=== PATIENT | male | born 1945 | race Hispanic/Latino ===

== ENCOUNTER 2017-03-28 10:50 | Inpatient (IN) | payer BC, MEDICARE ==
[2017-03-28] VITALS (13 sets, daily range): BP systolic 130–163; BP diastolic 68–99
[~2017-03-28] VITALS: Ht 167.6 cm; Wt 88.2 kg
[~2017-03-28 10:50] MED LIST: CEPHALEXIN500 MG PO; GLIPIZIDE5 MG PO; METOPROLOL TART25 MG PO; TYLENOL WITH C1 EACH PO
[2017-03-28 11:36] LABS: BILIRUBIN,URINE NEGATIVE (NEGATIVE); KETONES,URINE NEGATIVE (NEGATIVE); LEUKOCYTE ESTERASE ,URINE NEGATIVE (NEGATIVE); NITRITE,URINE NEGATIVE (NEGATIVE); PROTEIN,URINE DIPSTICK 3+ (NEGATIVE); URINE UROBILINOGEN 0.2 mg/dL (0.2 - 1)
[2017-03-28 11:38] LABS: CLARITY,URINE SL CLOUDY (CLEAR); COLOR,URINE YELLOW (YELLOW)
[2017-03-28 11:40] LABS: STREPTOCOCCUS GRP A ANTIGEN NEGATIVE (NEGATIVE)
--- NOTE | 2017-03-28 11:40 | Diagnostic Imaging Report ---
Portable chest x-ray CPT code 27392 INDICATION: Shortness of breath COMPARISON: Chest x-ray 09/12/2015 FINDINGS: Frontal view of the chest obtained at 0912 hours. The cardiac silhouette is enlarged and stable in morphology. Right PICC line has been removed. The pulmonary vascular marking are prominent. The interstitial markings are prominent. The lungs demonstrate patchy groundglass airspace opacities in each lung. The costophrenic angles are sharp. There is no pneumothorax. The osseous structures are intact and normal in morphology. IMPRESSION: 1. Pulmonary vascular congestion and mild interstitial edema. 2. Stable cardiomegaly. Signed by: Dr. Dave Bradshaw MD on 03/28/2017 11:37 AM
[2017-03-28 11:41] LABS: BASOPHILS # (AUTO) 0.1 (0.0-0.1); BASOPHILS % 0.8 % (0.0-1.0); EOSINOPHILS # (AUTO) 0.1 (0.0-0.4); EOSINOPHILS % 1.3 % (0.0-6.0); HEMATOCRIT 36.3 % (38.2-49.6); HEMOGLOBIN 12.1 g/dL (14.0-18.0); LYMPHOCYTES # (AUTO) 1.4 (1.0-3.2); LYMPHOCYTES % 15.7 % (18.0-39.1); MEAN CORPUSCULAR HEMOGLOBIN 28.9 pg (28-32); MEAN CORPUSCULAR HGB CONC 33.3 g/dL (31-35); MEAN CORPUSCULAR VOLUME 86.8 fL (81-99); MONOCYTES # (AUTO) 0.8 (0.2-0.8); MONOCYTES % 8.7 % (4.4-11.3); NEUTROPHILS # (AUTO) 6.3 (2.1-6.9); NEUTROPHILS % 73.3 % (38.7-80.0); PLATELET COUNT 202 x10e3/uL (140-360); RED BLOOD COUNT 4.18 x10e6/uL (4.3-5.7); RED CELL DISTRIBUTION WIDTH 13.1 % (11.7-14.4)
[2017-03-28 11:49] LABS: INFLUENZAE A&B ANTIGEN (RAPID) NEGATIVE (NEGATIVE)
[2017-03-28 12:02] LABS: ALBUMIN 2.9 g/dL (3.5-5.0); ALBUMIN/GLOBULIN RATIO 0.7 (0.8-2.0); ANION GAP 13.2 mmol/L (8-16); CALCIUM 8.6 mg/dL (8.4-10.2); CREATININE, SERUM 3.16 mg/dL (0.72-1.25); POTASSIUM 4.2 mmol/L (3.5-5.1)
[2017-03-28 12:05] LABS: BACTERIA,URINE PRESENT /HPF; RBC,URINE 0-5 /HPF (0-5); WBC,URINE (MAN) 0-5 /HPF (0-5)
[2017-03-28 12:06] LABS: EPITHELIAL CELLS,URINE RARE /LPF
[2017-03-28 12:06] LABS: INR 0.98; PARTIAL THROMBOPLASTIN TIME 33.9 seconds (23.8-35.5); PROTHROMBIN TIME 13.5 seconds (11.9-14.5)
[2017-03-28 12:09] LABS: CREATINE KINASE MB 8.5 ng/mL (0.00-5.00)
[2017-03-28 12:13] LABS: TROPONIN I 1.112 ng/mL (0-0.300)
[2017-03-28] MEDS ORDERED: SODIUM CHLORIDE FLUSH 10 ML SYR INJ PRN (12:30)
[2017-03-28] MEDS ORDERED: ONDANSETRON HCL INJ 2 MG/ML VIAL IV PRN (12:30)
[2017-03-28] MEDS ORDERED: MORPHINE SULFATE 2 MG/ML SYR IV PRN ×2 (12:30→19:15)
[2017-03-28] MEDS ORDERED: DEXTROSE 50% SYRINGE 50 ML IV PRN ×2 (13:30→19:45)
[2017-03-28] MEDS ORDERED: FUROSEMIDE INJ 10 MG/ML 4 ML VIAL IV ONE (15:00)
[2017-03-28] MEDS ORDERED: GLIPIZIDE5 MG PO (15:38)
[2017-03-28] MEDS ORDERED: LOPRESSOR25 MG PO (15:49)
[2017-03-28] MEDS ORDERED: COQ-10100 MG PO (15:49)
[2017-03-28] MEDS ORDERED: METOCLOPRAMIDE10 MG PO (15:49)
[2017-03-28] MEDS: INSULIN REGULAR, HUMAN 100 UNIT/1 ML 3ML VIAL SQ SCH ×2 (19:10→21:02)
[2017-03-28] MEDS ORDERED: HYDROCODONE/APAP 5MG-325MG TAB PO PRN (19:15)
[2017-03-28] MEDS ORDERED: NIFEDIPINE CR 30 MG TAB PO SCH (19:15)
[2017-03-28] MEDS ORDERED: ACETAMINOPHEN 325 MG TAB PO PRN (19:15)
[2017-03-28] MEDS ORDERED: ASPIRIN 81 MG CHEW TAB PO ONE (19:15)
[2017-03-28] MEDS ORDERED: MELATONIN 3 MG TAB PO PRN (19:15)
[2017-03-28] MEDS ORDERED: NIFEDIPINE CR 30 MG TAB ONE (19:18)
[2017-03-28] MEDS ORDERED: HEPARIN SOD (PORCINE) 5,000 UNIT/ML VIAL IV ONE (19:45)
[2017-03-28] MEDS ORDERED: HYDRALAZINE HCL 20 MG/ML VIAL IV PRN (19:45)
[2017-03-28] MEDS: HEPARIN 25,000U/0.45% NS 250ML 900 UNIT in SODIUM CHLORIDE 0.9% 250ML 0 ML IV SCH (19:45)
[2017-03-28] MEDS ORDERED: HEPARIN SOD (PORCINE) 1000 UNIT/ML SDV ONE (19:47)
[2017-03-28] MEDS ORDERED: HEPARIN 25,000U/0.45% NS 250ML 250 ML ONE (19:48)
[2017-03-28] MEDS: ATORVASTATIN 20 MG TAB PO SCH (20:59)
[2017-03-28] MEDS: FUROSEMIDE INJ 10 MG/ML 4 ML VIAL IV SCH (20:59)
[2017-03-28] MEDS: METOPROLOL TARTRATE 25 MG TAB PO SCH (20:59)
[2017-03-28 23:31] LABS: CREATINE KINASE MB 8.2 ng/mL (0.00-5.00)
[2017-03-28 23:54] LABS: TROPONIN I 2.049 ng/mL (0-0.300)
[2017-03-29] VITALS (43 sets, daily range): BP systolic 122–175; BP diastolic 57–96
[2017-03-29 03:59] LABS: CREATINE KINASE MB 5.9 ng/mL (0.00-5.00)
[2017-03-29 04:04] LABS: TROPONIN I 3.052 ng/mL (0-0.300)
--- NOTE | 2017-03-29 04:06 | History and Physical ---
CHIEF COMPLAINT: Chest pain. HPI: This is a 71-year-old male with diabetes, hypertension, prior CA in the past with stent placement, osteomyelitis of the foot, seems to be very noncompliant with his medications who comes in with complaints of chest pain for the last 4 to 5 days. Patient reports having chest pressure on the right chest wall, felt more as a pressure, like a knot, but denies any radiation. He had associated nausea, but no vomiting. He denies any diaphoresis, palpitations, abdominal pain or any headache. Patient reports having similar chest pain in the past. He denies any other complaints at this time. Patient was seen and evaluated at bedside in the ER. Currently denies any chest pain at this time. His vital signs were stable. REVIEW OF SYSTEMS: Pertinent positive: Chest pain. Pertinent negative: Denies any palpitation, nausea, vomiting, diarrhea, dysuria, hematuria, frequency, urgency, lightheadedness, dizziness, abdominal pain, headache, shortness of breath or any other complaints. The rest of the 14-point review of systems have been reviewed with the patient and are negative. ALLERGIES: NO KNOWN DRUG ALLERGIES. HOME MEDICATIONS 1. Glipizide 10 mg daily. 2. Reglan 10 mg p.o. t.i.d. 3. Metoprolol tartrate 25 mg b.i.d. PAST MEDICAL HISTORY: Hypertension, diabetes, CAD, osteomyelitis in the past of the foot. He also had coronary artery disease with stent placements in the past. SURGICAL HISTORY: He had amputation of his left great toe due to osteomyelitis. He also had cardiac stents in the past. FAMILY HISTORY: Hypertension and diabetes. SOCIAL HISTORY: He was a former smoker, quit many years ago. No drugs, no alcohol. He is retired. PHYSICAL EXAMINATION VITAL SIGNS: He is afebrile, pulse 96, respiratory rate is 18, and his blood pressure is 166/93, and pulse ox 99% on room air. GENERAL: Not in acute distress. Alert and oriented times 3. Cooperative on exam. HEENT: Head is normocephalic, atraumatic. Eyes: Pupils equal, round, and reactive to light bilaterally. Extraocular movements intact bilaterally. Throat: No evidence of any erythema or exudate in the posterior pharynx. Has poor dentition. NECK: Supple with good range of motion. PULMONARY: Clear to auscultation bilaterally. No wheezing, no rales or rhonchi. No crackles appreciated. CARDIOVASCULAR: Positive S1 and S2. No murmurs, rubs, or gallops appreciated. ABDOMEN: Soft, nondistended, and nontender on palpation. Bowel sounds are present. MUSCULOSKELETAL: Strength is 5/5 throughout. No evidence of any musculoskeletal deficit on exam. SKIN: Intact. Warm to touch. Good capillary refill. PSYCHIATRIC: Normal affect and mood. EXTREMITIES: He has 1+ pedal edema, bilateral lower extremities. Good range of motion throughout. LAB FINDINGS: White count 8.6, hemoglobin 12, hematocrit 36, and platelets 202,000. Coagulations are all normal. Chemistry: Sodium 139, potassium 4.2, chloride 110, bicarb 20, anion gap of 13, BUN 37, and creatinine 3.1. GFR is 20. Glucose 143, calcium 8.6, total bilirubin . LFTs were normal. CK is 226, CK-MB 8.5, and troponin 1.1. BNP 1469. Total protein 7, albumin 2.9. Urinalysis was found to be 2+ blood, 3+ protein, 1+ glucose. Serology: Influenza and strep were negative. Microbiology: Urine culture pending. Throat culture pending. IMAGING STUDIES: Chest x-ray: Pulmonary vascular congestion and mild interstitial edema. ASSESSMENT 1. Non-ST elevated myocardial infarction with elevated troponin, cardiology consulted. Will discuss with cardiology about heparin drip, started on aspirin, statin. I will hold angiotensin-converting enzymes inhibitor due to renal failure. Beta oziel, statin. Get A1c, thyroid-stimulating hormone, and lipid panel. 2. Type 2 diabetes, insulin sliding scale, Accu-Cheks, A1c. 3. Hyperlipidemia, lipid panel. Oral Lipitor. 4. Hypertension. Continue with metoprolol at home. PRN hydralazine. May add low-dose nifedipine. 5. Chronic kidney disease stage 4. Likely due to diabetic neuropathy and hypertension, currently at baseline, monitor. 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 6. Prophylaxis, will likely need to be on heparin drip once we discuss this with cardiology. 7. Fluid, electrolytes, nutrients: Diabetic diet, hold intravenous fluids. DISPOSITION: Inpatient, cardiology consulted otherwise. Job#: [id number] CF
[2017-03-29 06:18] LABS: BASOPHILS # (AUTO) 0.1 (0.0-0.1); BASOPHILS % 0.8 % (0.0-1.0); EOSINOPHILS # (AUTO) 0.3 (0.0-0.4); EOSINOPHILS % 3.6 % (0.0-6.0); HEMATOCRIT 30.2 % (38.2-49.6); HEMOGLOBIN 10.1 g/dL (14.0-18.0); LYMPHOCYTES # (AUTO) 1.3 (1.0-3.2); LYMPHOCYTES % 17.6 % (18.0-39.1); MEAN CORPUSCULAR HEMOGLOBIN 29.3 pg (28-32); MEAN CORPUSCULAR HGB CONC 33.4 g/dL (31-35); MEAN CORPUSCULAR VOLUME 87.5 fL (81-99); MONOCYTES # (AUTO) 0.9 (0.2-0.8); MONOCYTES % 12.1 % (4.4-11.3); NEUTROPHILS % 65.6 % (38.7-80.0); PLATELET COUNT 169 x10e3/uL (140-360); RED BLOOD COUNT 3.45 x10e6/uL (4.3-5.7); RED CELL DISTRIBUTION WIDTH 13.2 % (11.7-14.4)
[2017-03-29 06:30] LABS: CHOL/HDL RATIO 7.2 (3.9-4.7)
[2017-03-29 06:33] LABS: CREATININE, SERUM 3.22 mg/dL (0.72-1.25)
[2017-03-29 06:54] LABS: THYROID STIMULATING HORMONE 1.753 uIU/mL (0.350-4.940)
[2017-03-29] MEDS: INSULIN REGULAR, HUMAN 100 UNIT/1 ML 3ML VIAL SQ SCH ×4 (07:30→21:00)
[2017-03-29] MEDS: METOPROLOL TARTRATE 25 MG TAB PO SCH ×2 (08:20→20:47)
[2017-03-29] MEDS: FUROSEMIDE INJ 10 MG/ML 4 ML VIAL IV SCH ×3 (08:20→18:25)
[2017-03-29] MEDS: ASPIRIN 325 MG TAB PO SCH ×2 (08:20→08:22)
[2017-03-29] MEDS: NIFEDIPINE CR 30 MG TAB PO SCH (08:21)
[2017-03-29] MEDS ORDERED: NITROGLYCERIN 0.4 MG SUBL SL PRN (08:45)
[2017-03-29] MEDS: ASPIRIN 81 MG CHEW TAB PO SCH (10:05)
[2017-03-29 10:46] LABS: CREATINE KINASE MB 4.6 ng/mL (0.00-5.00)
[2017-03-29 11:00] LABS: TROPONIN I 1.72 ng/mL (0-0.300)
--- NOTE | 2017-03-29 11:10 | Consultation ---
DATE OF CONSULTATION: March 28, 2017 CARDIOLOGY CONSULTATION REQUESTING PHYSICIAN: Dr. Smith. REASON FOR CONSULTATION: Elevated troponin. HISTORY OF PRESENT ILLNESS: This is a pleasant 71-year-old male that presented with chest pain. According to the patient, for the last 4 to 5 days he started having left substernal chest pain, on a scale of 8 out of 10 with no radiation, that felt like pressure. He also complained of shortness of breath, that he came into the emergency room for evaluation. He has a history of CAD, PVD and PAD. Last year, August 2015, he underwent a cardiac catheterization and peripheral angiogram also by Dr. Sharp, and he was found to have coronary artery disease and recommended open heart surgery. He denies any palpitation, any dizziness, any diaphoresis or headache. Troponin was positive. EKG with normal sinus rhythm. BNP 1459. PAST MEDICAL HISTORY: Hypertension, diabetes, CKD, PAD, PVD, hyperlipidemia, osteomyelitis, [place] with cardiac stent, peripheral neuropathy, and abdominal hernia. PAST SURGICAL HISTORY: Right toes amputation, cardiac stent. FAMILY HISTORY: Positive for CAD. SOCIAL HISTORY: He quit smoking. Lives at home with the family. MEDICATIONS: See med list. ALLERGIES: HE IS NOT ALLERGIC TO ANY MEDICATION. REVIEW OF SYSTEMS: Negative except those mentioned above. PHYSICAL EXAMINATION VITAL SIGNS: Temperature 99, heart rate 81, blood pressure 158/84, respiration 16, oxygen saturation 97% on room air. GENERAL: He is awake, alert, and oriented x3. HEENT: Mucous membrane moist. NECK: Supple. LUNGS: Bilaterally clear to auscultation. CARDIOVASCULAR: S1/S2 present. ABDOMEN: Soft. NEUROLOGICAL: Intact. EXTREMITIES: With no edema. LABS: Sodium 139, potassium 4.0, chloride 109, CO2 20, BUN 38, creatinine 3.22, glucose 111. White blood cell 7.60, hemoglobin 10.1, hematocrit 30.2, platelet 169. PT 13.5, PTT 63.9, INR 0.98. IMPRESSION 1. Fxe-FI-jzyhhbudm myocardial infarction. 2. Coronary artery disease. 3. Congestive heart failure. 4. Peripheral vascular disease with peripheral artery disease. 5. Chronic kidney disease. 6. Hypertension. 7. Diabetes. ASSESSMENT/PLAN: Will get an echo to reassess the LV and the valve function. He had echo done last year with normal LV function with EF estimated 81%. He also had a cardiac catheterization done 2016 that recommended open heart surgery. Will go ahead and consult a cardiac surgeon. Will continue nitrates, statin and beta oziel. Will go ahead and hold KAREN inhibitor for now due to the renal insufficiency. Will continue heparin drip. Further cardiac workup pending clinical course. Thank you for this consultation. Dictated by: Nishant Quevedo NP Job#: [id number] EV
[2017-03-29] MEDS: SODIUM BICARBONATE 650 MG TAB PO SCH (18:25)
[2017-03-29] MEDS ORDERED: HEPARIN 25,000U/0.45% NS 250ML 250 ML ONE (20:44)
[2017-03-29] MEDS: ATORVASTATIN 20 MG TAB PO SCH (20:46)
[2017-03-29] MEDS: HEPARIN 25,000U/0.45% NS 250ML 900 UNIT in SODIUM CHLORIDE 0.9% 250ML 0 ML IV SCH (20:48)
[2017-03-30] MEDS: FUROSEMIDE INJ 10 MG/ML 4 ML VIAL IV SCH ×2 (00:10→05:45)
[2017-03-30 04:00] VITALS: BP 122/58
[2017-03-30 06:44] LABS: BASOPHILS # (AUTO) 0.1 (0.0-0.1); BASOPHILS % 0.7 % (0.0-1.0); EOSINOPHILS # (AUTO) 0.4 (0.0-0.4); EOSINOPHILS % 4.6 % (0.0-6.0); HEMATOCRIT 34.1 % (38.2-49.6); HEMOGLOBIN 11.2 g/dL (14.0-18.0); LYMPHOCYTES # (AUTO) 1.7 (1.0-3.2); LYMPHOCYTES % 20.2 % (18.0-39.1); MEAN CORPUSCULAR HEMOGLOBIN 28.6 pg (28-32); MEAN CORPUSCULAR HGB CONC 32.8 g/dL (31-35); MEAN CORPUSCULAR VOLUME 87.2 fL (81-99); MONOCYTES % 12.6 % (4.4-11.3); NEUTROPHILS # (AUTO) 5.1 (2.1-6.9); NEUTROPHILS % 61.4 % (38.7-80.0); PLATELET COUNT 175 x10e3/uL (140-360); RED BLOOD COUNT 3.91 x10e6/uL (4.3-5.7); RED CELL DISTRIBUTION WIDTH 13.2 % (11.7-14.4)
[2017-03-30 07:22] LABS: ANION GAP 12.2 mmol/L (8-16); CALCIUM 8.4 mg/dL (8.4-10.2); CREATININE, SERUM 3.72 mg/dL (0.72-1.25); POTASSIUM 4.2 mmol/L (3.5-5.1)
[2017-03-30] MEDS: INSULIN REGULAR, HUMAN 100 UNIT/1 ML 3ML VIAL SQ SCH ×4 (07:30→20:45)
[2017-03-30] MEDS: ASPIRIN 81 MG CHEW TAB PO SCH (09:32)
[2017-03-30] MEDS: NIFEDIPINE CR 30 MG TAB PO SCH (09:33)
[2017-03-30] MEDS: SODIUM BICARBONATE 650 MG TAB PO SCH ×2 (09:33→17:38)
[2017-03-30] MEDS: METOPROLOL TARTRATE 25 MG TAB PO SCH ×2 (09:33→20:59)
[2017-03-30 12:00] VITALS: BP 139/75
[2017-03-30 16:36] VITALS: BP 115/56
[2017-03-30 20:00] VITALS: BP 136/72
[2017-03-30] MEDS: ATORVASTATIN 20 MG TAB PO SCH (20:59)
[2017-03-30 22:41] VITALS: BP 136/72
[2017-03-31] VITALS (8 sets, daily range): BP systolic 132–145; BP diastolic 60–74
[2017-03-31] MEDS: HEPARIN 25,000U/0.45% NS 250ML 900 UNIT in SODIUM CHLORIDE 0.9% 250ML 0 ML IV SCH (02:29)
[2017-03-31 06:42] LABS: BASOPHILS % 0.4 % (0.0-1.0); EOSINOPHILS # (AUTO) 0.3 (0.0-0.4); EOSINOPHILS % 6.9 % (0.0-6.0); HEMATOCRIT 28.3 % (38.2-49.6); HEMOGLOBIN 9.4 g/dL (14.0-18.0); LYMPHOCYTES # (AUTO) 1.3 (1.0-3.2); MEAN CORPUSCULAR HEMOGLOBIN 29.1 pg (28-32); MEAN CORPUSCULAR HGB CONC 33.2 g/dL (31-35); MEAN CORPUSCULAR VOLUME 87.6 fL (81-99); MONOCYTES % 20.8 % (4.4-11.3); NEUTROPHILS # (AUTO) 2.2 (2.1-6.9); NEUTROPHILS % 44.5 % (38.7-80.0); PLATELET COUNT 132 x10e3/uL (140-360); RED BLOOD COUNT 3.23 x10e6/uL (4.3-5.7); RED CELL DISTRIBUTION WIDTH 13.1 % (11.7-14.4)
[2017-03-31] MEDS: INSULIN REGULAR, HUMAN 100 UNIT/1 ML 3ML VIAL SQ SCH ×4 (07:30→22:01)
[2017-03-31 07:33] LABS: ANION GAP 13.4 mmol/L (8-16); CALCIUM 7.8 mg/dL (8.4-10.2); CREATININE, SERUM 3.74 mg/dL (0.72-1.25); POTASSIUM 4.4 mmol/L (3.5-5.1)
--- NOTE | 2017-03-31 08:09 | Progress Note ---
DATE: March 31, 2017 TIME: 7:49 a.m. OVERNIGHT: No chest pain. REVIEW OF SYSTEMS: Denies any dizziness. PHYSICAL EXAMINATION VITAL SIGNS: Reviewed. GENERAL: A tired-appearing man resting in bed. HEENT: Anicteric. CARDIOVASCULAR: Normal S1 and S2. LUNGS: Moderate breath sounds. ABDOMEN: Soft, nontender and nondistended. EXTREMITIES: He has a right transmetatarsal amputation, well-healed. SKIN: Dry. PSYCHIATRIC: Normal affect. NEUROLOGICAL: Alert and oriented times 3. Moving all extremities. LABS: Reviewed. MEDICATIONS: Reviewed. ASSESSMENT: A 71-year-old man with: 1. Ziu-DJ-txgpxkd elevation myocardial infarction. 2. Diabetes mellitus, type 2. 3. Hyperlipidemia. 4. Hypertension. 5. Chronic kidney disease, stage 4/diabetic nephropathy. 6. Normocytic anemia, moderate. 7. Obesity: Body mass index 31.4. 8. Pulmonary edema. PLAN 1. Continue heparin drip. 2. Continue metoprolol, statin, aspirin, calcium channel oziel. 3. Patient is considering left heart catheterization. 4. Continue blood pressure control. 5. Continue oxygen support p.r.n. 6. Left ventricular ejection fraction was 81% about a year ago. 7. Monitor respiratory status. 8. Add Protonix while the patient is on a heparin drip. Job#: [id number] LEA
[2017-03-31] MEDS: NIFEDIPINE CR 30 MG TAB PO SCH (09:34)
[2017-03-31] MEDS: METOPROLOL TARTRATE 25 MG TAB PO SCH ×2 (09:34→22:01)
[2017-03-31] MEDS: ASPIRIN 81 MG CHEW TAB PO SCH (09:34)
[2017-03-31] MEDS: SODIUM BICARBONATE 650 MG TAB PO SCH ×2 (09:34→17:13)
[2017-03-31] MEDS: PANTOPRAZOLE SOD 40 MG TABEC PO SCH (09:34)
[2017-03-31 15:36] LABS: PROTHROMBIN TIME 13.7 seconds (11.9-14.5)
--- NOTE | 2017-03-31 21:36 | Consultation ---
DATE OF CONSULTATION: March 31, 2017 REASON FOR CONSULTATION: Coronary artery disease. REQUESTED BY: Dr. Johnson HISTORY: This is a 71-year-old man with diabetes, hypertension, and a history of myocardial infarction, with stent placements, who has been fairly noncompliant with his medical regimen. He was admitted via the emergency room with chest pressure of the right upper chest wall. He denied any radiation to the arms or jaw. There was no classic substernal chest pain. He had associated nausea, but no vomiting. There was no diaphoresis, palpitations or headache. He has had similar chest pains in the past. He had a cardiac catheterization and peripheral arteriogram by Dr. Sharp last year. Reportedly, he was told of coronary artery disease and coronary artery bypass grafting was recommended. However, he did not want surgery and did well until now. There is no clear history of PND or orthopnea. No palpitation. No dizziness. Troponins were positive in the emergency room. EKG was normal. BNP was 1459. PAST MEDICAL HISTORY: Positive for hypertension, diabetes, chronic renal insufficiency with a creatinine running approximately 3.0-3.5. Positive for peripheral arterial disease with transmetatarsal amputation on the right. Positive for hyperlipidemia, osteomyelitis, coronary artery stenting, and an abdominal hernia, which was repaired. Positive for diabetes. PAST SURGICAL HISTORY: Possible right toe amputation and coronary artery stenting. FAMILY HISTORY: Positive for coronary artery disease. Negative for stroke. SOCIAL HISTORY: A previously heavy smoker, but quit several years ago. No IV drugs or alcohol. He lives at home with his family. MEDICATIONS: See MAR. ALLERGIES: NONE. REVIEW OF SYSTEMS GENERAL: Positive for fatigue and malaise. NEUROLOGIC: Negative for focal weakness of extremities or dysarthria. HEENT: Negative for decreased vision or decreased hearing. CARDIAC: Positive for chest pain as above. Negative for palpitations. PULMONARY: Negative for shortness of breath or wheezing. GI: No constipation or diarrhea. : Negative for hematuria or dysuria. ENDOCRINE: Negative for polyuria or polydipsia. VASCULAR: Positive for claudication and positive as above. SKIN: Negative for rashes or nonhealing ulcers. HEMATOLOGIC: Negative for clotting or bleeding. INFECTIOUS: Negative for fevers or sweating. PSYCHIATRIC: Negative for depression or anxiety. PHYSICAL EXAMINATION GENERAL: Well-developed, well-nourished man sitting up in bed, appearing his stated age. His and daughter are at the bedside. VITAL SIGNS: Blood pressure 140/70, pulse 80 and regular, respirations 16 and unlabored. NECK: Supple and nontender. No JVD. CARDIAC: Regular rate and rhythm. Normal S1 and S2. No S3, S4, rub or murmur. LUNGS: Clear to auscultation and percussion bilaterally. ABDOMEN: Globoid and benign. Good bowel sounds. No hepatosplenomegaly. There is an upper midline well-healed scar. BACK: No CVA tenderness. No muscular spasm. EXTREMITIES: No cyanosis, clubbing or edema. There is a well-healed right transmetatarsal amputation. VASCULAR: Carotids 2+/2+ bilaterally. No carotid bruits. Brachials 2+/2+ bilaterally. Ulnars and radials 1+/2+ bilaterally. Femorals 2+/2+ bilaterally. I could not palpate any pulses distal to either femoral artery and either lower extremities. SKIN: No rashes or nonhealing ulcers. MUSCULOSKELETAL: Full range of motion at all joints. No joint swelling. NEUROLOGIC: Cranial nerves II through XII intact. Sensation intact to light touch and pinprick bilaterally. Strength 5/5 all extremities. LYMPHATIC: Negative for cervical, clavicular, femoral adenopathy. LABORATORIES: White count 12.96, hemoglobin 9.4, hematocrit 28.3, platelet count 132,000. INR 1.0. PTT 75.4 (on IV heparin). Sodium 142, potassium 4.4, BUN 44, creatinine 3.74. IMPRESSION: Non-ST elevation myocardial infarction. Cardiac catheterization was, apparently, carried out about a year ago or more and coronary artery bypass grafting was recommended. Patient refused at that time. He has now ruled in for another myocardial infarction. Repeat cardiac catheterization with surgical intervention if warranted, is most likely appropriate. I will discuss these issues with his other physicians. Thank you very much for asking me to see this nice man. Job#: [id number] CQ
[2017-03-31] MEDS: ATORVASTATIN 20 MG TAB PO SCH (22:01)
[2017-04-01] VITALS (8 sets, daily range): BP systolic 135–158; BP diastolic 62–81
[2017-04-01] MEDS: INSULIN REGULAR, HUMAN 100 UNIT/1 ML 3ML VIAL SQ SCH ×4 (07:30→21:28)
[2017-04-01 08:11] LABS: ALBUMIN 2.6 g/dL (3.5-5.0); ALBUMIN/GLOBULIN RATIO 0.7 (0.8-2.0); CALCIUM 8.1 mg/dL (8.4-10.2); CREATININE, SERUM 3.68 mg/dL (0.72-1.25); PHOSPHORUS 3.5 MG/DL (2.3-4.7)
[2017-04-01] MEDS: NIFEDIPINE CR 30 MG TAB PO SCH (09:45)
[2017-04-01] MEDS: SODIUM BICARBONATE 650 MG TAB PO SCH ×2 (09:45→17:32)
[2017-04-01] MEDS: ASPIRIN 81 MG CHEW TAB PO SCH (09:45)
[2017-04-01] MEDS: PANTOPRAZOLE SOD 40 MG TABEC PO SCH (09:45)
[2017-04-01] MEDS: METOPROLOL TARTRATE 25 MG TAB PO SCH ×2 (09:45→20:47)
--- NOTE | 2017-04-01 13:09 | Progress Note ---
DATE: April 01, 2017 TIME: 8:30 a.m. OVERNIGHT: Patient refuses catheterization. REVIEW OF SYSTEMS: Denies any dizziness. PHYSICAL EXAMINATION VITAL SIGNS: Reviewed. GENERAL: A tired-appearing man resting in bed. HEENT: Anicteric. CARDIOVASCULAR: Normal S1 and S2. LUNGS: Moderate breath sounds. ABDOMEN: Soft, nontender and nondistended. EXTREMITIES: He has a right transmetatarsal amputation well healed. SKIN: Dry. PSYCHIATRIC: Normal affect. NEUROLOGICAL: Alert and oriented times 3. Moving all extremities. LABS: Reviewed. MEDICATIONS: Reviewed. ASSESSMENT: A 71-year-old man. 1. Inr-YI-yoswnif elevation myocardial infarction. 2. Diabetes mellitus, type 2. 3. Hyperlipidemia. 4. Hypertension. 5. Chronic kidney disease, stage 4/diabetic nephropathy. 6. Normocytic anemia, moderate. 7. Obesity. BMI 31.4. 8. Pulmonary edema. PLAN 1. Patient refuses heart catheterization. Therefore, continue medical management only. 2. Some bleeding with heparin drip. Heparin has been discontinued. 3. Continue beta oziel, statin, aspirin, calcium channel oziel and other medications. 4. Left ventricular ejection fraction 81% a year ago. 5. Blood pressure is controlled. 6. Hemoglobin A1c is 6.4, LDL 175, and triglycerides 154. Will increase Lipitor to 80 mg daily. 7. Discharge planning. Job#: [id number]
--- NOTE | 2017-04-01 13:16 | Diagnostic Imaging Report ---
PROCEDURE:US RETROPERITONEAL ( KIDNEY ). COMPARISON:CTA abdomen and pelvis and runoff 08/29/2015. INDICATIONS:ARF TECHNIQUE: Metcalf-scale and color sonographic images of the bilateral kidneys and bladder where obtained in transverse and longitudinal planes. FINDINGS: RIGHT KIDNEY: 10.0 x 5.5 x 4.5 cm, cortex 1.9 cm Cysts: None Solid masses: None Stones: None Hydronephrosis: None Echogenicity: Normal. LEFT KIDNEY: 10.9 x 5.9 x 5.2 cm, cortex 1.7 cm Cysts: None Solid masses: None Stones: None Hydronephrosis: None Echogenicity: Normal. Bladder: The prevoid volume 156 mL. No post void volume. Bilateral ureteral jets are not visualized. 1.0 x 2.7 x 3.2 cm (4.4 mL) soft tissue in the lumen of the bladder. Prostate: Not seen. CONCLUSION: 1. Normal kidneys. 2. 1.0 x 2.7 x 3.2 cm soft tissue lesion in the base of the bladder, which may represent the median lobe hypertrophy of the prostate versus an intraluminal mass. Recommend CT urogram or direct cystoscopy. Dictated by: Je Todd M.D. on 04/01/2017 at 13:24 Electronically approved by: Je Todd M.D. on 04/01/2017 at 13:24
[2017-04-01] MEDS: FUROSEMIDE INJ 10 MG/ML 4 ML VIAL IV SCH ×2 (15:30→21:41)
[2017-04-01] MEDS ORDERED: ATORVASTATIN 40 MG TAB PO SCH (21:00)
[2017-04-02] VITALS: BP 135/65
[2017-04-02 04:00] VITALS: BP 145/68
[2017-04-02 06:05] LABS: ALBUMIN 2.5 g/dL (3.5-5.0); ALBUMIN/GLOBULIN RATIO 0.7 (0.8-2.0); ANION GAP 13.8 mmol/L (8-16); CALCIUM 7.8 mg/dL (8.4-10.2); CREATININE, SERUM 3.73 mg/dL (0.72-1.25); POTASSIUM 3.8 mmol/L (3.5-5.1)
[2017-04-02] MEDS: FUROSEMIDE INJ 10 MG/ML 4 ML VIAL IV SCH ×2 (06:17→14:49)
[2017-04-02] MEDS ORDERED: PROTONIX40 MG/ML PO (06:28)
[2017-04-02] MEDS ORDERED: NIFEDIPINE ER30 M1 PO (06:28)
[2017-04-02] MEDS ORDERED: ASPIRIN CHEW81 MG PO (06:28)
[2017-04-02] MEDS ORDERED: Atorvastatin PO (06:28)
[2017-04-02] MEDS ORDERED: SODIUM BICARBO650 MG PO (06:28)
[2017-04-02] MEDS ORDERED: FUROSEMIDE40 MG PO (06:30)
--- NOTE | 2017-04-02 07:21 | Discharge Summary ---
PRINCIPAL DIAGNOSES: 1. Non-ST elevation myocardial infarction. 2. Questionable bladder lesion. 3. Diabetes mellitus type 2. 4. Hyperlipidemia. 5. Obesity, body mass index 31.4. 6. Chronic kidney disease, stage 4. 7. Diabetic nephropathy. Hemoglobin A1c 6.4, LDL 175, triglycerides 154. SECONDARY DIAGNOSIS: Diabetes mellitus type 2. CHIEF COMPLAINT: Chest discomfort. HISTORY OF PRESENT ILLNESS: A 71-year-old man found to have non-ST elevation [place]. Please refer to the H and P for further details. HOSPITAL COURSE: Patient has non-ST elevation [place], diabetes mellitus type 2, hemoglobin A1c 6.4, LDL 175. Recommended for heart catheterization, patient refused. He refused any intervention other than medical. Ultrasound showed questionable bladder lesion. He will follow up with urology outpatient for further management. He is currently symptom free. He has been placed on statin, beta oziel, aspirin, and Lasix. He is doing better. His last ejection fraction was 81% about a year ago. His ejection fraction on this occasion was 60%. Patient is currently appropriate for discharge. Will follow up. DISCHARGE MEDICATIONS: Per electronic medical record. FOLLOWUP: 1. Follow up with primary care doctor in 1 week. 2. Follow up with urology in 1 week, Dr. Wallace. 3. Follow up with cardiology in 2 weeks. 4. Follow up with nephrology in 1 week. CONDITION ON DISCHARGE: Stable and improving. DISCHARGE LOCATION: Home. AMARI DIAZ MD Job#: [id number]
[2017-04-02] MEDS: INSULIN REGULAR, HUMAN 100 UNIT/1 ML 3ML VIAL SQ SCH ×3 (07:30→16:30)
[2017-04-02 07:42] VITALS: BP 167/77
[2017-04-02] MEDS: NIFEDIPINE CR 30 MG TAB PO SCH (08:44)
[2017-04-02] MEDS: PANTOPRAZOLE SOD 40 MG TABEC PO SCH (08:44)
[2017-04-02] MEDS: ASPIRIN 81 MG CHEW TAB PO SCH (08:44)
[2017-04-02] MEDS: SODIUM BICARBONATE 650 MG TAB PO SCH (08:44)
[2017-04-02] MEDS: METOPROLOL TARTRATE 25 MG TAB PO SCH (08:44)
[2017-04-02 11:55] VITALS: BP 165/75
[2017-04-02 16:19] VITALS: BP 138/68
[2017-04-02 17:35] LABS: CREATININE,URINE RANDOM 36.61 mg/dL (63-166)
== END 2017-04-02 18:04 | disposition home or self-care (01) | DRG 280 ==
LOC: ER 10:50 → ERHOLD 13:00 → ICU 21:09 → MED/SURG 03-29 22:18
PROVIDERS: ADMIT Internal Medicine; ATTEND Internal Medicine
DX: I21.4 Non-ST elevation (NSTEMI) myocardial infarction (principal); I50.33 Acute on chronic diastolic (congestive) heart failure; J81.1 Chronic pulmonary edema; E87.2 Acidosis; N18.4 Chronic kidney disease, stage 4 (severe); I13.0 Hypertensive heart and chronic kidney disease with heart failure and stage 1 through stage 4 chronic kidney disease, or unspecified chronic kidney disease; E86.0 Dehydration; E66.9 Obesity, unspecified; Z68.31 Body mass index [BMI] 31.0-31.9, adult; I25.10 Atherosclerotic heart disease of native coronary artery without angina pectoris; E11.51 Type 2 diabetes mellitus with diabetic peripheral angiopathy without gangrene; Z79.4 Long term (current) use of insulin; Z53.29 Procedure and treatment not carried out because of patient's decision for other reasons; Z91.14 Patient's other noncompliance with medication regimen; Z89.431 Acquired absence of right foot; Z87.891 Personal history of nicotine dependence; I25.2 Old myocardial infarction; Z95.5 Presence of coronary angioplasty implant and graft
CPT/HCPCS: 36415; 71010; 76770; 80048; 80053; 80061; 81001; 81050; 82550; 82553; 82575; 82948; 83036; 83518; 83880; 84100; 84156; 84443; 84484; 85025; 85610; 85730; 87070; 87086; 87400; 93005; 93306; 96372; 99284; J1644; J1940; J7050

== ENCOUNTER 2017-04-28 20:35 | Inpatient (IN) | payer MEDICARE ==
[~2017-04-28] VITALS: Ht 167.6 cm; Wt 67.6 kg
[~2017-04-28 20:35] MED LIST changes: +ASPIRIN CHEW81 MG PO; +Atorvastatin PO; +COQ-10100 MG PO; +FUROSEMIDE40 MG PO; +LOPRESSOR25 MG PO; +METOCLOPRAMIDE10 MG PO; +NIFEDIPINE ER30 M1 PO; +PROTONIX40 MG/ML PO; +SODIUM BICARBO650 MG PO
[2017-04-28] MEDS ORDERED: NITROGLYCERIN 2% OINT 1 GM PKT TOP ONE (21:15)
[2017-04-28 21:27] LABS: BASOPHILS # (AUTO) 0.1 (0.0-0.1); BASOPHILS % 0.6 % (0.0-1.0); EOSINOPHILS # (AUTO) 0.2 (0.0-0.4); EOSINOPHILS % 1.8 % (0.0-6.0); HEMATOCRIT 33.9 % (38.2-49.6); LYMPHOCYTES # (AUTO) 1.4 (1.0-3.2); LYMPHOCYTES % 15.2 % (18.0-39.1); MEAN CORPUSCULAR HEMOGLOBIN 28.9 pg (28-32); MEAN CORPUSCULAR HGB CONC 32.4 g/dL (31-35); MEAN CORPUSCULAR VOLUME 89.2 fL (81-99); MONOCYTES # (AUTO) 0.7 (0.2-0.8); MONOCYTES % 8.1 % (4.4-11.3); NEUTROPHILS # (AUTO) 6.6 (2.1-6.9); PLATELET COUNT 200 x10e3/uL (140-360); RED CELL DISTRIBUTION WIDTH 12.9 % (11.7-14.4)
[2017-04-28 21:28] LABS: BILIRUBIN,URINE NEGATIVE (NEGATIVE); KETONES,URINE TRACE (NEGATIVE); LEUKOCYTE ESTERASE ,URINE NEGATIVE (NEGATIVE); NITRITE,URINE NEGATIVE (NEGATIVE); PROTEIN,URINE DIPSTICK 3+ (NEGATIVE); URINE UROBILINOGEN 0.2 mg/dL (0.2 - 1)
[2017-04-28 21:29] LABS: CLARITY,URINE SL CLOUDY (CLEAR); COLOR,URINE YELLOW (YELLOW)
[2017-04-28 21:31] LABS: INR 0.95; PROTHROMBIN TIME 13.1 seconds (11.9-14.5)
[2017-04-28 21:32] LABS: PARTIAL THROMBOPLASTIN TIME 33.4 seconds (23.8-35.5)
[2017-04-28 21:41] LABS: ALBUMIN 3.2 g/dL (3.5-5.0); ALBUMIN/GLOBULIN RATIO 0.9 (0.8-2.0); ANION GAP 15.8 mmol/L (8-16); CALCIUM 8.2 mg/dL (8.4-10.2); CREATININE, SERUM 3.51 mg/dL (0.72-1.25); POTASSIUM 3.8 mmol/L (3.5-5.1)
[2017-04-28 21:48] LABS: CREATINE KINASE MB 3.8 ng/mL (0.00-5.00)
[2017-04-28] MEDS ORDERED: FUROSEMIDE INJ 10 MG/ML 4 ML VIAL IV ONE (22:00)
--- NOTE | 2017-04-28 22:16 | Diagnostic Imaging Report ---
EXAM: CHEST SINGLE (NOT PORTABLE), AP 1 view DATE: 04/28/2017 9:07 PM Time stamp on exam: 2142 hours INDICATION: Shortness of breath COMPARISON: AP view the chest March 28, 2017 FINDINGS: LINES/TUBES: None LUNGS: Interval decrease in interstitial edema. Persistent bibasilar atelectasis and bronchial thickening. PLEURA: Small bilateral pleural effusions. HEART AND MEDIASTINUM: The heart is at the upper limits of normal in size. BONES AND SOFT TISSUES: No acute findings. IMPRESSION: Decreased interstitial edema since prior exam. Bronchial thickening, bibasilar atelectasis and new small bilateral pleural effusions. Signed by: Dr. Shasta Breaux M.D. on 04/28/2017 10:12 PM
[2017-04-29] MEDS ORDERED: ASPIRIN 81 MG CHEW TAB PO ONE (01:30)
[2017-04-29] MEDS ORDERED: HEPARIN SOD (PORCINE) 5,000 UNIT/ML VIAL IV ONE (01:30)
[2017-04-29] MEDS ORDERED: METOPROLOL TARTRATE 25 MG TAB PO STA (01:32)
[2017-04-29] MEDS ORDERED: HEPARIN 25,000U/0.45% NS 250ML 250 ML ONE (01:52)
[2017-04-29] MEDS: HEPARIN 25,000U/0.45% NS 250ML 25,000 UNIT in SODIUM CHLORIDE 0.9% 250ML 0 ML IV SCH (02:00)
[2017-04-29] MEDS ORDERED: DEXTROSE 50% SYRINGE 50 ML IV PRN (02:45)
--- NOTE | 2017-04-29 08:14 | History and Physical ---
PRIMARY CARE PHYSICIAN: Dr. Jose D Christian CHIEF COMPLAINT: Reduced urine output and leg swelling. HISTORY OF PRESENT ILLNESS: A 71-year-old man with a history of chronic kidney disease, stage 4, recently discharged earlier this month after a jnz-AR-qatzkcemp [place]. Now, the patient developing worsening leg edema and reduced urine output. Therefore, he came to the hospital. Here, his kidney function appears to be somewhat at baseline at stage 4. He was started on diuretics with urine output improving. Denies any chest pain, fever, chills, or sweats. PAST MEDICAL HISTORY: Oon-ZZ-efannvcbg [place] in March 2017, questionable bladder lesion, diabetes mellitus, type 2, hyperlipidemia, obesity, BMI 31.4, chronic kidney disease, stage 4/diabetic nephropathy, diabetes mellitus, type 2, hemoglobin A1c 6.4, LDL 175 in March of 2017, osteomyelitis of the foot, coronary artery disease with stent placement in the remote past, hypertension, hyperlipidemia. PAST SURGICAL HISTORY: Amputation of the left great toe due to osteomyelitis, coronary stents in the remote past. ALLERGIES: PER ELECTRONIC MEDICAL RECORD. FAMILY HISTORY: Hypertension and diabetes mellitus. SOCIAL HISTORY: Patient is . He quit smoking many years ago. No alcohol or illicits. He is retired. MEDICATIONS: Per electronic medical record. REVIEW OF SYSTEMS: Denies any dizziness or chest pain. PHYSICAL EXAMINATION VITAL SIGNS: Have been reviewed. GENERAL: A tired-appearing man resting in bed. HEENT: Anicteric. Pupils respond to light. No oral lesions. CARDIOVASCULAR: Normal S1 and S2. No murmurs are audible. LUNGS: Moderate breath sounds slightly reduced at the base. ABDOMEN: Soft, nontender and nondistended. EXTREMITIES: He has 1+ leg edema bilaterally. He has a right transmetatarsal amputation well-healed. SKIN: Dry. PSYCHIATRIC: Normal affect. LABS: Reviewed. MEDICATIONS: Reviewed. ASSESSMENT AND PLAN: A 71-year-old man with: 1. Bilateral pleural effusion/peripheral edema: Patient has mild fluid overload and started on diuretics and urinating. Will follow I's and O's. Will use thromboembolic-deterrent hose as well. 2. Chronic kidney disease, stage 4/diabetic nephropathy: Will consult his belt builder helper, Dr. Paige. 3. Diabetes mellitus, type 2: Last hemoglobin A1c was 6.4, LDL 175 and triglycerides 154 early in March 2017. Continue medication regimen and ADA diet. 4. Obesity: Caloric restriction needed. 5. Coronary artery disease with history of fyr-YR-hvjhqkvov myocardial infarction earlier this month and also coronary stents in the past: Will control his blood pressure and cholesterol medications. 6. Normocytic anemia, mild: Will follow. 7. Elevated BNP: He has had an echocardiogram earlier this month, which showed normal left ventricular ejection fraction. 8. Physical deconditioning: Physical therapy consultation. 9. Elevated troponin: This is minimal secondary to his chronic kidney disease and is much lower than the last reading on the last admission to the hospital where he had a oqi-ZG-xsirdqw elevation myocardial infarction. Currently, the patient does not have an git-SU-jgzylbo elevation myocardial infarction. Continue home medication regimen. 10. Prophylaxis: Will use thromboembolic-deterrent hose and sequential compression devices. 11. Disposition: Monitor I's and O's. Consult his belt builder helper. Job#: [id number] LEA
[2017-04-29] MEDS ORDERED: METOPROLOL TARTRATE 25 MG TAB PO SCH ×2 (09:00)
[2017-04-29] MEDS ORDERED: FUROSEMIDE INJ 10 MG/ML 4 ML VIAL IV SCH ×2 (09:00→17:00)
[2017-04-29] MEDS ORDERED: ASPIRIN 325 MG TAB EC PO SCH (09:00)
[2017-04-29 09:03] LABS: CREATINE KINASE MB 3.4 ng/mL (0.00-5.00)
[2017-04-29] MEDS: GLIPIZIDE 5 MG TAB PO SCH (09:08)
[2017-04-29] MEDS: INSULIN REGULAR, HUMAN 100 UNIT/1 ML 3ML VIAL SQ SCH ×4 (09:08→21:00)
[2017-04-29] MEDS: ASPIRIN 81 MG CHEW TAB PO SCH (09:09)
[2017-04-29] MEDS: METOPROLOL TARTRATE 25 MG TAB PO SCH ×2 (09:10→21:00)
[2017-04-29] MEDS: NIFEDIPINE CR 30 MG TAB PO SCH (09:10)
[2017-04-29] MEDS: PANTOPRAZOLE SOD 40 MG TABEC PO SCH (09:28)
[2017-04-29] MEDS: METOCLOPRAMIDE HCL 10 MG TAB PO SCH ×3 (09:28→21:01)
[2017-04-29] MEDS: SODIUM BICARBONATE 650 MG TAB PO SCH ×2 (09:28→20:53)
--- NOTE | 2017-04-29 10:32 | Consultation ---
DATE OF CONSULTATION: April 29, 2017 CARDIOLOGY CONSULTATION REASON FOR CONSULTATION: CHF and non-STEMI. CONSULTING PHYSICIAN: Dr. Adams HPI: This is a pleasant 71-year-old male that presented with shortness of breath. According to the patient, for the last several days, 4-5 days he has been having dyspnea that worsened with exacerbation. He is unable to lay flat, increased cough, fever, and sweating that he presented to the emergency room for evaluation. He also complained of bilateral lower extremity edema. He was recently admitted and discharged home in March for the same reason of CKD, CHF, and non-STEMI. He has a history of CAD. Recommended cardiac catheterization in 2016, which he declined. He denies any chest pain, any palpitations, any dizziness, or headache. Troponin was borderline. EKG with non-ST abnormalities. BNP 1552.1. PAST MEDICAL HISTORY: Hypertension, diabetes, CKD, PAD, PVD, hyperlipidemia, osteomyelitis, OK, peripheral neuropathy, abdominal hernia, and CHF. PAST SURGICAL HISTORY: Hernia repair, cardiac stent, right toe amputation. FAMILY HISTORY: Positive for CAD. SOCIAL HISTORY: He quit smoking. Lives at home with the . MEDICATIONS: See med list. ALLERGIES: HE IS NOT ALLERGIC TO ANY MEDICATION. REVIEW OF SYSTEMS: Negative except those mentioned above. Is positive for orthopnea and bilateral lower extremity edema. PHYSICAL EXAMINATION VITAL SIGNS: Temperature 97, heart rate 87, blood pressure 146/85, respirations 18, oxygen saturation 99% on 2 L nasal cannula. GENERAL: He is alert, awake and oriented times 3. HEENT: Mucous membrane moist. NECK: Supple. LUNGS: Bilateral with decreased breath sounds. CARDIOVASCULAR: S1 and S2 present. ABDOMEN: Soft. NEUROLOGICAL: Intact. EXTREMITIES: With positive edema. LABS: Sodium 140, potassium 3.8, chloride 105, CO2 23, BUN 51, creatinine 3.51, glucose 158. White blood cell 8.89, hemoglobin 11, hematocrit 33.9, and platelets 200,000. PTT 10.1, PTT 77.3 and INR 0.95. IMPRESSION 1. Dkk-SK-[id number] elevation myocardial infarction. 2. Diastolic congestive heart failure. 3. Chronic kidney disease. 4. Diabetes. 5. Hypertension. 6. Peripheral arterial disease. 7. History of peripheral vascular neuropathy. ASSESSMENT AND PLAN: Will go ahead and put him on 1.5 L fluid restriction. Low salt diet. Possible cardiac catheterization if cleared by renal. Will go ahead and continue the heparin drip. Will continue diuretics and beta oziel. He had an EF in March that showed an EF of 60% to 65% with normal left ventricular size. Further cardiac workup pending clinical course. Thank you for this consultation. DICTATED BY RICH PIERRE NP Job#: [id number] RI
--- NOTE | 2017-04-29 15:54 | Consultation ---
DATE OF CONSULTATION: April 29, 2017 HISTORY OF PRESENT ILLNESS: A 71-year-old gentleman with underlying history of chronic kidney disease stage 4 who presented with worsening edema of the lower extremities refractory to medications at home. He had recently seen his data center consultant who had increased the diuretic dose, but that, according to him, made him sick and nauseated. He is currently sitting up in no apparent distress saturating 96% on 3 liters nasal cannula. Labs show white count 8.8. Hemoglobin 11. Sodium 140. Potassium 3.8. Bicarbonate 23. Creatinine 3.5. Calcium 8.2. CK of 221. BNP 1552. SOCIAL HISTORY: Patient does not smoke or drink. FAMILY HISTORY: Significant for hypertension and diabetes. Workup here also included chest x-ray shows bronchial thickening, interstitial edema and pulmonary edema. ALLERGIES: NO APPARENT DRUG ALLERGIES. CURRENT MEDICATIONS: On sodium bicarbonate 39 mg p.o. b.i.d., insulin, pantoprazole, nifedipine 30 mg daily, metoprolol 25 mg p.o. b.i.d., metoclopramide p.r.n., glipizide 10 mg daily. Heparin subcutaneous injection, Lasix 40 mg IV twice a day, which I am going to stop. He is on aspirin 81 mg to chew, atorvastatin 80 mg at bedtime. For dose schedule please see MAR. PAST MEDICAL HISTORY: Significant for prior hernia repair, coronary artery disease, prior MRI, peripheral vascular disease, history of osteomyelitis, type 2 diabetes, peripheral neuropathy, chronic kidney disease, stage 4, prior PCI and coronary stent, history of diastolic heart failure. PHYSICAL EXAMINATION: GENERAL: Awake, alert, sitting up in no apparent distress. VITALS: Blood pressure 131/84. Pulse rate 79, afebrile, and respiratory rate 17. HEAD AND NECK: Cornea clear. Oral mucosa dry. Neck veins flat. LUNGS: Bibasilar rales. HEART: S1 and S2 audible. ABDOMEN: Otherwise soft and nontender. FLANKS: Full. LOWER EXTREMITY EXAMINATION: Shows 2+ edema. IMPRESSION AND PLAN: Congestive heart failure, fluid overload, strict intake and output. Will diurese with Lasix 40 mg IV q.6 h. Obtain clinic records. Has [id number]-rhnqgpr kidney failure, may require dialysis. Will obtain 24-hour urine for creatinine clearance and proteins at some point in time. Underlying hypertension, diastolic heart failure, overall for multiple comorbid condition. Please see orders. Job#: [id number] GH
[2017-04-29 17:04] LABS: CREATINE KINASE MB 3.2 ng/mL (0.00-5.00)
[2017-04-29] MEDS: ATORVASTATIN 40 MG TAB PO SCH (20:53)
[2017-04-29] MEDS: FUROSEMIDE INJ 10 MG/ML 4 ML VIAL IV SCH (21:00)
[2017-04-29] MEDS ORDERED: ATORVASTATIN 80 MG PO SCH (21:00)
[2017-04-30] VITALS (8 sets, daily range): BP systolic 122–139; BP diastolic 62–80
[2017-04-30] MEDS: FUROSEMIDE INJ 10 MG/ML 4 ML VIAL IV SCH ×4 (00:05→18:42)
[2017-04-30] MEDS: HEPARIN 25,000U/0.45% NS 250ML 25,000 UNIT in SODIUM CHLORIDE 0.9% 250ML 0 ML IV SCH ×2 (01:58→04:06)
[2017-04-30] MEDS ORDERED: HEPARIN 25,000U/0.45% NS 250ML 250 ML ONE (04:03)
[2017-04-30] MEDS ORDERED: ACETAMINOPHEN 325 MG TAB PO PRN (06:00)
[2017-04-30 07:29] LABS: BASOPHILS # (AUTO) 0.1 (0.0-0.1); BASOPHILS % 0.9 % (0.0-1.0); EOSINOPHILS # (AUTO) 0.5 (0.0-0.4); EOSINOPHILS % 6.7 % (0.0-6.0); HEMATOCRIT 29.3 % (38.2-49.6); HEMOGLOBIN 9.4 g/dL (14.0-18.0); LYMPHOCYTES # (AUTO) 1.6 (1.0-3.2); LYMPHOCYTES % 21.6 % (18.0-39.1); MEAN CORPUSCULAR HEMOGLOBIN 28.4 pg (28-32); MEAN CORPUSCULAR HGB CONC 32.1 g/dL (31-35); MEAN CORPUSCULAR VOLUME 88.5 fL (81-99); MONOCYTES # (AUTO) 0.8 (0.2-0.8); MONOCYTES % 10.2 % (4.4-11.3); NEUTROPHILS # (AUTO) 4.6 (2.1-6.9); NEUTROPHILS % 60.2 % (38.7-80.0); PLATELET COUNT 156 x10e3/uL (140-360); RED BLOOD COUNT 3.31 x10e6/uL (4.3-5.7)
[2017-04-30] MEDS: INSULIN REGULAR, HUMAN 100 UNIT/1 ML 3ML VIAL SQ SCH ×4 (07:30→21:45)
--- NOTE | 2017-04-30 07:50 | Progress Note ---
DATE: April 30, 2017 TIME: 7 a.m. OVERNIGHT: Chest pain. REVIEW OF SYSTEMS: Denies any dizziness. PHYSICAL EXAMINATION VITAL SIGNS: Reviewed. GENERAL: A tired-appearing man resting in bed. HEENT: Anicteric. CARDIOVASCULAR: Normal S1 and S2. LUNGS: Moderate breath sounds. ABDOMEN: Soft, nontender and nondistended. EXTREMITIES: He has 1+ leg edema bilaterally. 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 SKIN: Dry. PSYCHIATRIC: Normal affect. LABS: Reviewed. MEDICATIONS: Reviewed. ASSESSMENT: A 71-year-old man with: 1. Bilateral pleural effusion/peripheral edema. 2. Diabetes mellitus, type 2: Hemoglobin A1c 6.4, LDL 175 and triglycerides 154 in March 2017. 3. Obesity. 4. Coronary artery disease with history of [id number] elevation myocardial infarction in March: There is no acute coronary syndrome at this time. 5. Normocytic anemia. 6. Physical deconditioning. 7. Elevated troponin without acute myocardial infarction at this time. PLAN 1. Discontinue heparin. 2. Continue diuretics. Defer to nephrology for adjustment. 3. Continue bicarb. 4. Continue oral antiglycemic agents. Glucose controlled. 5. Plan to discharge when fluid status has improved. Job#: [id number] LEA
[2017-04-30 07:55] LABS: ALBUMIN 2.8 g/dL (3.5-5.0); ALBUMIN/GLOBULIN RATIO 0.9 (0.8-2.0); ANION GAP 15.6 mmol/L (8-16); CREATININE, SERUM 3.69 mg/dL (0.72-1.25); POTASSIUM 3.6 mmol/L (3.5-5.1)
[2017-04-30] MEDS: GLIPIZIDE 5 MG TAB PO SCH (09:00)
[2017-04-30] MEDS: METOPROLOL TARTRATE 25 MG TAB PO SCH ×2 (09:11→17:58)
[2017-04-30] MEDS: ASPIRIN 81 MG CHEW TAB PO SCH (09:11)
[2017-04-30] MEDS: NIFEDIPINE CR 30 MG TAB PO SCH (09:11)
[2017-04-30] MEDS: METOCLOPRAMIDE HCL 10 MG TAB PO SCH ×3 (09:12→22:03)
[2017-04-30] MEDS: PANTOPRAZOLE SOD 40 MG TABEC PO SCH (09:12)
[2017-04-30] MEDS: SODIUM BICARBONATE 650 MG TAB PO SCH ×2 (09:12→17:58)
[2017-04-30] MEDS: DOCUSATE SODIUM 100 MG CAP PO SCH ×2 (10:42→17:57)
[2017-04-30] MEDS: ATORVASTATIN 40 MG TAB PO SCH (22:03)
[2017-05-01] VITALS: BP 99/55
[2017-05-01] MEDS: FUROSEMIDE INJ 10 MG/ML 4 ML VIAL IV SCH ×4 (00:55→16:31)
[2017-05-01 04:00] VITALS: BP 105/54
[2017-05-01] MEDS: INSULIN REGULAR, HUMAN 100 UNIT/1 ML 3ML VIAL SQ SCH ×4 (07:30→21:37)
[2017-05-01 09:01] VITALS: BP 147/70
[2017-05-01] MEDS: PANTOPRAZOLE SOD 40 MG TABEC PO SCH (09:15)
[2017-05-01] MEDS: DOCUSATE SODIUM 100 MG CAP PO SCH ×2 (09:15→16:31)
[2017-05-01] MEDS: METOCLOPRAMIDE HCL 10 MG TAB PO SCH ×3 (09:15→21:37)
[2017-05-01] MEDS: ASPIRIN 81 MG CHEW TAB PO SCH (09:15)
[2017-05-01] MEDS: SODIUM BICARBONATE 650 MG TAB PO SCH ×2 (09:16→16:31)
[2017-05-01] MEDS: NIFEDIPINE CR 30 MG TAB PO SCH (09:21)
[2017-05-01] MEDS: METOPROLOL TARTRATE 25 MG TAB PO SCH ×2 (09:21→21:37)
--- NOTE | 2017-05-01 09:32 | Progress Note ---
DATE: May 01, 2017 TIME: 8:17 a.m. OVERNIGHT: Patient continues to have some shortness of breath particularly with lying down. REVIEW OF SYSTEMS: Denies any dizziness. PHYSICAL EXAMINATION VITAL SIGNS: Reviewed. GENERAL: A tired-appearing man resting in chair. HEENT: Anicteric. CARDIOVASCULAR: Normal S1 and S2. LUNGS: Reduced breath sounds. Moderate air movement. ABDOMEN: Soft, nontender and nondistended. EXTREMITIES: He has 1+ leg edema bilaterally. SKIN: Dry. PSYCHIATRIC: Flat affect. NEUROLOGICAL: Alert and oriented times 3. LABS: Reviewed. MEDICATIONS: Reviewed. ASSESSMENT: A 71-year-old man with: 1. Shortness of breath out of proportion to imaging findings. 2. Bilateral pleural effusion/peripheral edema. 3. Diabetes mellitus, type 2: Hemoglobin A1c 6.4, LDL 175 and triglycerides 154. 4. Obesity. 5. Coronary artery disease with a history of scc-EW-gbywspg elevation myocardial infarction. 6. Normocytic anemia. 7. Physical deconditioning. 8. Elevated troponin without myocardial infarction at this time. PLAN 1. Will need to get a 2-D echocardiogram to rule out pericardial effusion. Patient's shortness of breath is out of proportion to the findings on imaging of his lungs. 2. Diurese the patient as able. Defer to nephrology. 3. Diabetes control. 4. Lasix 40 mg IV q.6 h. and follow I's and O's. 5. May need dialysis at this time, although the patient is resistant. I think he will probably consider dialysis if needed. 6. Control blood pressure. 7. Discontinue sulfonylurea. 8. Obtain 2-D echocardiogram today. Job#: [id number] MS
--- NOTE | 2017-05-01 10:46 | Diagnostic Imaging Report ---
PROCEDURE: Frontal and lateral views of the chest. COMPARISON: Portable chest 04/28/2017. INDICATIONS: SHORTNESS OF BREATH FINDINGS: Lines/tubes: None. Lungs: Bibasilar airspace opacities. No parenchymal mass. Pleura: Small bilateral pleural effusions. No pneumothorax. Heart and mediastinum: The heart and the mediastinum are normal. Atherosclerotic calcifications. Bones: No acute bony abnormality. Degenerative changes of the thoracic spine. IMPRESSION: Bibasilar airspace opacities may represent a developing pneumonia. Small bilateral pleural effusions. Dictated by: Gino García M.D. on 05/01/2017 at 10:54 Electronically approved by: Gino García M.D. on 05/01/2017 at 10:54
[2017-05-01] MEDS ORDERED: SODIUM CHLORIDE 0.9% 250ML 250 ML ONE (12:38)
[2017-05-01] MEDS: LEVOFLOXACIN 750MG/D5W 150ML 150 ML IV SCH (12:44)
[2017-05-01 13:13] VITALS: BP 120/67
[2017-05-01 16:11] VITALS: BP 131/60
[2017-05-01 20:00] VITALS: BP 136/75
[2017-05-01] MEDS: ATORVASTATIN 40 MG TAB PO SCH (21:37)
[2017-05-02] VITALS: BP 112/67
[2017-05-02] MEDS: FUROSEMIDE INJ 10 MG/ML 4 ML VIAL IV SCH ×2 (00:12→05:27)
[2017-05-02 04:00] VITALS: BP 125/67
[2017-05-02] MEDS: INSULIN REGULAR, HUMAN 100 UNIT/1 ML 3ML VIAL SQ SCH ×4 (07:30→21:35)
[2017-05-02 08:00] VITALS: BP 116/59
[2017-05-02] MEDS: ASPIRIN 81 MG CHEW TAB PO SCH (09:00)
[2017-05-02] MEDS: METOPROLOL TARTRATE 25 MG TAB PO SCH ×2 (09:00→21:39)
[2017-05-02] MEDS: SODIUM BICARBONATE 650 MG TAB PO SCH ×2 (09:00→17:00)
[2017-05-02] MEDS: METOCLOPRAMIDE HCL 10 MG TAB PO SCH ×3 (09:00→21:39)
[2017-05-02] MEDS: PANTOPRAZOLE SOD 40 MG TABEC PO SCH (09:00)
[2017-05-02] MEDS: DOCUSATE SODIUM 100 MG CAP PO SCH ×2 (09:00→17:00)
[2017-05-02] MEDS: NIFEDIPINE CR 30 MG TAB PO SCH (09:00)
[2017-05-02 10:56] LABS: BASOPHILS % 0.5 % (0.0-1.0); EOSINOPHILS # (AUTO) 0.2 (0.0-0.4); EOSINOPHILS % 2.9 % (0.0-6.0); HEMATOCRIT 28.2 % (38.2-49.6); HEMOGLOBIN 9.1 g/dL (14.0-18.0); LYMPHOCYTES % 15.2 % (18.0-39.1); MEAN CORPUSCULAR HEMOGLOBIN 28.7 pg (28-32); MEAN CORPUSCULAR HGB CONC 32.3 g/dL (31-35); MONOCYTES # (AUTO) 0.7 (0.2-0.8); MONOCYTES % 10.8 % (4.4-11.3); NEUTROPHILS # (AUTO) 4.7 (2.1-6.9); NEUTROPHILS % 70.3 % (38.7-80.0); PLATELET COUNT 150 x10e3/uL (140-360); RED BLOOD COUNT 3.17 x10e6/uL (4.3-5.7); RED CELL DISTRIBUTION WIDTH 13.1 % (11.7-14.4)
[2017-05-02 11:18] LABS: ANION GAP 14.9 mmol/L (8-16); CALCIUM 7.9 mg/dL (8.4-10.2); CREATININE, SERUM 4.17 mg/dL (0.72-1.25); POTASSIUM 3.9 mmol/L (3.5-5.1)
[2017-05-02 12:00] VITALS: BP 125/68
[2017-05-02] MEDS: LEVOFLOXACIN 750MG/D5W 150ML 150 ML IV SCH (12:19)
--- NOTE | 2017-05-02 12:45 | Progress Note ---
DATE: May 02, 2017 TIME: 7:40 a.m. OVERNIGHT: Feeling a little better at this time, on antibiotics for pneumonia. REVIEW OF SYSTEMS: Denies any dizziness or chest pain. PHYSICAL EXAMINATION VITAL SIGNS: Reviewed. GENERAL: A tired-appearing man, resting in chair. HEENT: Anicteric. CARDIOVASCULAR: Normal S1 and S2. LUNGS: Reduced breath sounds throughout. ABDOMEN: Soft and nontender. EXTREMITIES: 1+ leg edema bilaterally. SKIN: Dry. PSYCHIATRIC: Flat affect. NEUROLOGICAL: Alert and oriented times 3. Moving all extremities. LABS: Reviewed. MEDICATIONS: Reviewed. ASSESSMENT: A 71-year-old man with; 1. Shortness of breath/healthcare-associated pneumonia. 2. Bilateral pleural effusion/peripheral edema. 3. Diabetes mellitus, type 2. Hemoglobin A1c 6.4, LDL 175, and triglycerides 154. 4. Obesity. 5. Coronary artery disease. 6. Normocytic anemia. 7. Physical deconditioning. 8. Elevated troponin without acute coronary syndrome. PLAN 1. Continue Levaquin, patient is improving. 2. Followup 2D echocardiogram. 3. Continue diuresis. 4. Continue beta-oziel, statin, calcium channel oziel, aspirin. 5. Continue to follow I's and O's. 6. Discharge planning. We will obtain labs this morning. Job#: [id number] SISI
[2017-05-02 16:00] VITALS: BP 135/70
[2017-05-02] MEDS: FUROSEMIDE 40 MG TAB PO SCH (18:00)
[2017-05-02 20:00] VITALS: BP 143/88
[2017-05-02] MEDS: ATORVASTATIN 40 MG TAB PO SCH ×2 (21:00→21:39)
[2017-05-03] VITALS: BP 108/75
[2017-05-03 04:00] VITALS: BP 139/76
[2017-05-03] MEDS: INSULIN REGULAR, HUMAN 100 UNIT/1 ML 3ML VIAL SQ SCH ×4 (07:30→21:00)
[2017-05-03 08:00] VITALS: BP 162/95
[2017-05-03] MEDS: NIFEDIPINE CR 30 MG TAB PO SCH (08:28)
[2017-05-03] MEDS: METOPROLOL TARTRATE 25 MG TAB PO SCH ×2 (08:28→21:37)
[2017-05-03] MEDS: ASPIRIN 81 MG CHEW TAB PO SCH (08:28)
[2017-05-03] MEDS: GLIPIZIDE 5 MG TAB PO SCH (08:28)
[2017-05-03] MEDS: SODIUM BICARBONATE 650 MG TAB PO SCH ×2 (08:28→17:08)
[2017-05-03] MEDS: ALPRAZOLAM 0.5 MG TAB PO SCH ×3 (08:28→22:00)
[2017-05-03] MEDS: PANTOPRAZOLE SOD 40 MG TABEC PO SCH (08:28)
[2017-05-03] MEDS: DOCUSATE SODIUM 100 MG CAP PO SCH ×2 (08:28→17:08)
[2017-05-03] MEDS: METOCLOPRAMIDE HCL 10 MG TAB PO SCH ×3 (08:28→21:37)
[2017-05-03] MEDS: FUROSEMIDE 40 MG TAB PO SCH ×2 (08:49→17:08)
--- NOTE | 2017-05-03 11:10 | Progress Note ---
DATE: May 03, 2017 at 7:15 a.m. SUBJECTIVE: Overnight, anxiety, unable to sleep. Wants sleep medicine. REVIEW OF SYSTEMS: Denies any chest pain. PHYSICAL EXAMINATION VITAL SIGNS: Reviewed. GENERAL: A tired-appearing man, resting in bed. HEENT: Anicteric. CARDIOVASCULAR: Normal S1 and S2. LUNGS: Moderate breath sounds. ABDOMEN: Soft and nontender. EXTREMITIES: Trace leg edema. He has right TMA well healed. SKIN: Dry. PSYCHIATRIC: Normal affect. LABS: Reviewed. MEDICATIONS: Reviewed. ASSESSMENT: A 71-year-old man with; 1. Healthcare-associated pneumonia. 2. Bilateral pleural effusion/peripheral edema. 3. Diabetes mellitus, type 2. Hemoglobin A1c 6.4, LDL 175, and triglycerides 154. 4. Anxiety disorder. 5. Insomnia. 6. Coronary artery disease. 7. Normocytic anemia. 8. Physical deconditioning. 9. Elevated troponin without acute coronary syndrome. PLAN: 1. Start Xanax q.8 h. for anxiety. 2. Start Ambien for insomnia. 3. Continue antibiotics. 4. Continue physical therapy. 5. Continue beta-oziel, statin, calcium channel oziel, aspirin. 6. Continue physical therapy. 7. Discharge planning. Treat anxiety and insomnia. 8. The patient with improving kidney function this morning. 9. His I's and O's were [id number]. Job#: [id number]
[2017-05-03] MEDS: LEVOFLOXACIN 750MG/D5W 150ML 150 ML IV SCH (11:15)
[2017-05-03 11:47] LABS: CALCIUM 7.8 mg/dL (8.4-10.2); CREATININE, SERUM 4.67 mg/dL (0.72-1.25)
[2017-05-03 12:00] VITALS: BP 109/77
[2017-05-03 16:00] VITALS: BP_SYST 108; BP_SYST 122; BP_DIAS 70; BP_DIAS 76
[2017-05-03] MEDS ORDERED: PROMETHAZINE 12.5MG/ NACL 0.9% 12.5 MG/50 ML BAG IV PRN (17:15)
[2017-05-03 20:00] VITALS: BP 133/63
[2017-05-03] MEDS: ATORVASTATIN 40 MG TAB PO SCH (21:00)
[2017-05-03] MEDS: ZOLPIDEM TARTRATE 10 MG TAB PO SCH (21:32)
[2017-05-04] VITALS: BP_SYST 119; BP_SYST 99; BP_DIAS 71; BP_DIAS 88
[2017-05-04] MEDS: ALPRAZOLAM 0.5 MG TAB PO SCH ×3 (03:10→22:30)
[2017-05-04] MEDS: FUROSEMIDE 40 MG TAB PO SCH ×2 (06:20→18:05)
[2017-05-04 07:25] VITALS: BP 122/60
[2017-05-04] MEDS: INSULIN REGULAR, HUMAN 100 UNIT/1 ML 3ML VIAL SQ SCH ×4 (07:30→21:00)
[2017-05-04 07:52] LABS: BASOPHILS % 0.6 % (0.0-1.0); EOSINOPHILS # (AUTO) 0.3 (0.0-0.4); EOSINOPHILS % 4.3 % (0.0-6.0); HEMATOCRIT 25.5 % (38.2-49.6); HEMOGLOBIN 8.2 g/dL (14.0-18.0); LYMPHOCYTES # (AUTO) 1.4 (1.0-3.2); LYMPHOCYTES % 19.4 % (18.0-39.1); MEAN CORPUSCULAR HEMOGLOBIN 28.7 pg (28-32); MEAN CORPUSCULAR HGB CONC 32.2 g/dL (31-35); MEAN CORPUSCULAR VOLUME 89.2 fL (81-99); MONOCYTES # (AUTO) 0.9 (0.2-0.8); MONOCYTES % 12.1 % (4.4-11.3); NEUTROPHILS # (AUTO) 4.6 (2.1-6.9); NEUTROPHILS % 63.3 % (38.7-80.0); PLATELET COUNT 141 x10e3/uL (140-360); RED BLOOD COUNT 2.86 x10e6/uL (4.3-5.7); RED CELL DISTRIBUTION WIDTH 13.2 % (11.7-14.4)
[2017-05-04 08:00] VITALS: BP 122/60
[2017-05-04] MEDS: GLIPIZIDE 5 MG TAB PO SCH (08:00)
[2017-05-04 08:18] LABS: ANION GAP 17.1 mmol/L (8-16); CALCIUM 7.9 mg/dL (8.4-10.2); CREATININE, SERUM 4.8 mg/dL (0.72-1.25); POTASSIUM 4.1 mmol/L (3.5-5.1)
[2017-05-04] MEDS: NIFEDIPINE CR 30 MG TAB PO SCH (09:00)
[2017-05-04] MEDS: METOPROLOL TARTRATE 25 MG TAB PO SCH ×2 (09:00→21:28)
[2017-05-04] MEDS: DOCUSATE SODIUM 100 MG CAP PO SCH ×2 (09:22→17:30)
[2017-05-04] MEDS: SODIUM BICARBONATE 650 MG TAB PO SCH ×2 (09:22→17:30)
[2017-05-04] MEDS: PANTOPRAZOLE SOD 40 MG TABEC PO SCH (09:22)
[2017-05-04] MEDS: ASPIRIN 81 MG CHEW TAB PO SCH (09:22)
[2017-05-04] MEDS: METOCLOPRAMIDE HCL 10 MG TAB PO SCH ×3 (09:22→21:28)
--- NOTE | 2017-05-04 09:30 | Progress Note ---
DATE: May 04, 2017 TIME: 7:12 a.m. OVERNIGHT: Able to sleep in bed, adequate sleep with Ambien. REVIEW OF SYSTEMS: Denies any dizziness. PHYSICAL EXAMINATION VITAL SIGNS: Reviewed. GENERAL: A tired-appearing man resting in bed. HEENT: Anicteric. CARDIOVASCULAR: Normal S1 and S2. LUNGS: Moderate breath sounds reduced at bases. ABDOMEN: Soft and nontender. EXTREMITIES: 1+ edema bilaterally. SKIN: Dry. PSYCHIATRIC: Flat affect. LABS: Reviewed. MEDICATIONS: Reviewed. ASSESSMENT: This is a 71-year-old man. 1. Healthcare-associated pneumonia. 2. Bilateral pleural effusions/peripheral edema. 3. Diabetes mellitus, type 2. Hemoglobin A1c 6.4, LDL 175, and triglycerides 154. 4. Anxiety disorder. 5. Insomnia. 6. Coronary artery disease. 7. Normocytic anemia. 8. Physical deconditioning. 9. Elevated troponin without acute coronary syndrome. PLAN 1. Continue Xanax and Ambien. 2. Continue antibiotics. 3. Continue physical therapy. 4. Continue beta-oziel, statin, calcium channel oziel, aspirin. 5. I's and O's were not fully recorded. He remains on Lasix 60 mg p.o. q.12 h. 6. Obtain labs this morning and follow up nephrology's recommendations whether this patient will need dialysis or not, unlikely will need dialysis during this hospitalization, but we will defer this to nephrology. Job#: [id number]
[2017-05-04 12:00] VITALS: BP 123/60
[2017-05-04] MEDS: LEVOFLOXACIN 750MG/D5W 150ML 150 ML IV SCH (12:15)
[2017-05-04 16:07] VITALS: BP 159/73
[2017-05-04] MEDS ORDERED: DOXYCYCLINE 100MG/NS 100ML 100 ML IV SCH (17:00)
[2017-05-04] MEDS: DOXYCYCLINE HYCLATE TABLET 100 MG TAB PO SCH (18:05)
[2017-05-04 20:00] VITALS: BP 133/80
[2017-05-04] MEDS: ATORVASTATIN 40 MG TAB PO SCH (21:00)
[2017-05-04] MEDS: ZOLPIDEM TARTRATE 10 MG TAB PO SCH (21:27)
[2017-05-05] VITALS: BP 108/66
[2017-05-05 00:11] VITALS: BP 133/80
[2017-05-05 04:00] VITALS: BP 131/81
[2017-05-05] MEDS: ALPRAZOLAM 0.5 MG TAB PO SCH (06:00)
[2017-05-05] MEDS: FUROSEMIDE 40 MG TAB PO SCH (06:34)
[2017-05-05] MEDS ORDERED: FUROSEMIDE40 MG PO (07:05)
[2017-05-05] MEDS ORDERED: COLACE100 M1 PO (07:05)
[2017-05-05] MEDS ORDERED: DOXYCYCLINE HY100 MG PO (07:05)
[2017-05-05] MEDS ORDERED: ALPRAZOLAM0.5 MG PO (07:05)
[2017-05-05] MEDS ORDERED: AMBIEN10 MG PO (07:05)
[2017-05-05 07:25] VITALS: BP 141/65
[2017-05-05] MEDS: INSULIN REGULAR, HUMAN 100 UNIT/1 ML 3ML VIAL SQ SCH (07:30)
[2017-05-05] MEDS: GLIPIZIDE 5 MG TAB PO SCH (08:00)
[2017-05-05 08:08] VITALS: BP 141/65
[2017-05-05] MEDS: NIFEDIPINE CR 30 MG TAB PO SCH (09:00)
[2017-05-05] MEDS: DOCUSATE SODIUM 100 MG CAP PO SCH (09:32)
[2017-05-05] MEDS: ASPIRIN 81 MG CHEW TAB PO SCH (09:32)
[2017-05-05] MEDS: PANTOPRAZOLE SOD 40 MG TABEC PO SCH (09:33)
[2017-05-05] MEDS: DOXYCYCLINE HYCLATE TABLET 100 MG TAB PO SCH (09:33)
[2017-05-05] MEDS: METOPROLOL TARTRATE 25 MG TAB PO SCH (09:33)
[2017-05-05] MEDS: METOCLOPRAMIDE HCL 10 MG TAB PO SCH (09:33)
[2017-05-05] MEDS: SODIUM BICARBONATE 650 MG TAB PO SCH (09:33)
== END 2017-05-05 11:52 | disposition home or self-care (01) | DRG 291 ==
LOC: ER 20:35 → ERHOLD 04-29 02:57 → UNDOADMIN 04-29 02:57 → ERHOLD 04-29 07:20 → MED/SURG3 04-30 02:22 → OBSVTOIN 05-01 08:25
PROVIDERS: ADMIT Internal Medicine; ATTEND Internal Medicine
DX: I13.0 Hypertensive heart and chronic kidney disease with heart failure and stage 1 through stage 4 chronic kidney disease, or unspecified chronic kidney disease (principal); J18.9 Pneumonia, unspecified organism; N18.4 Chronic kidney disease, stage 4 (severe); N17.9 Acute kidney failure, unspecified; E11.21 Type 2 diabetes mellitus with diabetic nephropathy; E11.40 Type 2 diabetes mellitus with diabetic neuropathy, unspecified; D64.9 Anemia, unspecified; I50.33 Acute on chronic diastolic (congestive) heart failure; E11.22 Type 2 diabetes mellitus with diabetic chronic kidney disease; R74.8 Abnormal levels of other serum enzymes; I25.10 Atherosclerotic heart disease of native coronary artery without angina pectoris; Z95.5 Presence of coronary angioplasty implant and graft; Z87.891 Personal history of nicotine dependence; I25.2 Old myocardial infarction; Z89.411 Acquired absence of right great toe; E66.9 Obesity, unspecified; Z68.31 Body mass index [BMI] 31.0-31.9, adult; F41.9 Anxiety disorder, unspecified; K59.00 Constipation, unspecified; Z79.82 Long term (current) use of aspirin
CPT/HCPCS: 36415; 71045; 71046; 80048; 80053; 81001; 82550; 82553; 82948; 83880; 84484; 85025; 85610; 85730; 87086; 93005; 99285; G0378; J1644; J1940; J7050